=== PATIENT | female | born 1975 | race African-American/Black ===

== ENCOUNTER 2017-07-08 00:43 | Emergency (ER) | payer OTHER ==
[~2017-07-08] VITALS: Ht 165.1 cm; Wt 50.8 kg
[~2017-07-08 00:43] MED LIST: ERYT1OIN6 EACHEYE; FERR325T58 PO; NAPR375T3 PO
[2017-07-08 00:50] VITALS: BP 144/97
--- NOTE | 2017-07-08 02:06 | PHYS DOC ---
Past Medical History Past Medical History: No Pertinent History Past Surgical History: , Other Additional Past Surgical Histo: PARTIAL HYSTERECTOMY Alcohol Use: Occasionally Additional Information: pt states she drank "1 big ole beer" [place] at 7 pm Drug Use: Marijuana Adult General Chief Complaint Chief Complaint: NEURO SYMPTOMS/DEFICITS [facility] Patient is a 42 year old [f__sex] who presents with [] Review of Systems Review of Systems Constitutional: Denies fever or chills [] Eyes: Denies change in visual acuity, redness, or eye pain [] HENT: Denies nasal congestion or sore throat [] Respiratory: Denies cough or shortness of breath [] Cardiovascular: No additional information not addressed in HPI [] GI: Denies abdominal pain, nausea, vomiting, bloody stools or diarrhea [] : Denies dysuria or hematuria [] Musculoskeletal: Denies back pain or joint pain [] Integument: Denies rash or skin lesions [] Neurologic: Denies headache, focal weakness or sensory changes [] Endocrine: Denies polyuria or polydipsia [] Allergies Allergies Allergies Coded Allergies Type Severity Reaction Last Updated Verified No Known Drug Allergies 06/02/15 No Physical Exam Physical Exam Constitutional: Well developed, well nourished, no acute distress, non-toxic appearance. [] HENT: Normocephalic, atraumatic, bilateral external ears normal, oropharynx moist, no oral exudates, nose normal. [] Eyes: PERRLA, EOMI, conjunctiva normal, no discharge. [] Neck: Normal range of motion, no tenderness, supple, no stridor. [] Cardiovascular:Heart rate regular rhythm, no murmur [] Lungs & Thorax: Bilateral breath sounds clear to auscultation [] Abdomen: Bowel sounds normal, soft, no tenderness, no masses, no pulsatile masses. [] Skin: Warm, dry, no erythema, no rash. [] Back: No tenderness, no CVA tenderness. [] Extremities: No tenderness, no cyanosis, no clubbing, ROM intact, no edema. [] Neurologic: Alert and oriented X 3, normal motor function, normal sensory function, no focal deficits noted. [] Psychologic: Affect normal, judgement normal, mood normal. [] Current Patient Data Vital Signs Vital Signs Date Time Temp Pulse Resp B/P (MAP) Pulse Ox O2 Delivery O2 Flow Rate FiO2 8/11/17 00:50 98.0 89 20 144/97 (113) 99 Room Air 98.0 Lab Values Laboratory Tests Test 07/07/17 23:59 POC Urine HCG, Qualitative Hcg negative (Negative) EKG EKG [] Radiology/Procedures Radiology/Procedures [] Course & Med Decision Making Course & Med Decision Making Pertinent Labs and Imaging studies reviewed. (See chart for details) [] Dragon Disclaimer Dragon Disclaimer This electronic medical record was generated, in whole or in part, using a voice recognition dictation system. Departure Departure Impression: Primary Impression: Tuesday night nerve palsy Additional Impression: Radial nerve palsy Disposition: HOME, SELF-CARE Condition: GUARDED Referrals: NO PCP (PCP) Patient Instructions: Radial Nerve Palsy, Wrist Splint Problem Qualifiers SHALONDA VELEZ MD Jul 08, 2017 02:06
== END 2017-07-08 02:25 | disposition home or self-care (01) ==
LOC: ER 00:43
DX: G56.31 Lesion of radial nerve, right upper limb (principal); F12.10 Cannabis abuse, uncomplicated; Z90.711 Acquired absence of uterus with remaining cervical stump
CPT/HCPCS: 29125; 81025; 99283-25

== ENCOUNTER 2018-02-20 09:46 | Emergency (ER) | payer OTHER ==
[2018-02-20 10:22] LABS: BILIRUBIN,URINE NEGATIVE (NEG); CLARITY,URINE CLEAR; COLOR,URINE YELLOW; GLUCOSE,URINE NEGATIVE (NEG); NITRITE,URINE NEGATIVE (NEG); PH,URINE 5.5; PROTEIN,URINE 100 mg/dL (NEG-TRACE); UROBILINOGEN,URINE 0.2 mg/dL (0.2 mg/dL)
[2018-02-20] MEDS: IV NORMAL SALINE 1000ML BAG 1,000 ML IV (10:24)
[2018-02-20] MEDS: ONDANSETRON PF 4 MG/2 ML VIAL. IV (10:24)
[2018-02-20 10:28] LABS: AMPHETAMINE/METHAMPHETAMINE NEG (NEG); BARBITURATES NEG (NEG); BENZODIAZEPINES NEG (NEG); CANNABINOIDS POS (NEG); COCAINE NEG (NEG); ETHANOL, URINE NEG (NEG); METHADONE NEG (NEG); OPIATES NEG (NEG); PHENCYCLIDINE NEG (NEG)
[2018-02-20 10:36] LABS: BACTERIA,URINE FEW /HPF (0-FEW); SQUAMOUS EPITHELIAL CELL,UR FEW /LPF; WBC,URINE 0 /HPF (0-4)
[2018-02-20 10:40] LABS: ANION GAP 20 (6-14); BASO % 0 % (0-3); BLOOD UREA NITROGEN 15 mg/dL (7-20); BUN/CREATININE RATIO 21 (6-20); CALCIUM 9.3 mg/dL (8.5-10.1); CARBON DIOXIDE 21 mmol/L (21-32); CHLORIDE 98 mmol/L (98-107); CREATININE 0.7 mg/dL (0.6-1.0); EOS % 0 % (0-3); GLUCOSE 82 mg/dL (70-99); HEMATOCRIT 37.4 % (36.0-47.0); HEMOGLOBIN 12.6 g/dL (12.0-15.5); LYMPH # 0.5 x10^3/uL (1.0-4.8); LYMPH % 6 % (24-48); MEAN CORPUSCULAR HEMOGLOBIN 35 pg (25-35); MEAN CORPUSCULAR HGB CONC 34 g/dL (31-37); MEAN CORPUSCULAR VOLUME 102 fL (79-100); MONO # 0.2 x10^3/uL (0.0-1.1); MONO % 2 % (0-9); NEUT # 8.7 x10^3uL (1.8-7.7); NEUT % 92 % (31-73); PLATELET COUNT 247 x10^3/uL (140-400); POTASSIUM 3.5 mmol/L (3.5-5.1); RED BLOOD COUNT 3.66 x10^6/uL (3.50-5.40); RED CELL DISTRIBUTION WIDTH 13.2 % (11.5-14.5); SODIUM 139 mmol/L (136-145); WHITE BLOOD COUNT 9.4 x10^3/uL (4.0-11.0)
[2018-02-20 10:42] LABS: ETHANOL < 10 mg/dL (0-10)
[2018-02-20 10:45] LABS: ADD MAN DIFF? YES
[2018-02-20 10:46] LABS: ALK PHOS 80 U/L (46-116); ALT (SGPT) 139 U/L (14-59); AST (SGOT) 261 U/L (15-37); LIPASE 55 U/L (73-393); MAGNESIUM 1.3 mg/dL (1.8-2.4); TOTAL BILIRUBIN 0.6 mg/dL (0.2-1.0)
[2018-02-20 10:50] LABS: TROPONINI < 0.017 ng/mL (0.000-0.055)
[2018-02-20 10:53] LABS: CKMB MASS < 0.5 ng/mL (0.0-3.6); CREATINE KINASE 131 U/L (26-192)
[2018-02-20 10:53] LABS: NT-PRO BNP 54 pg/mL (0-124)
[2018-02-20 11:07] LABS: MYOGLOBIN 26 ng/mL (9-82); PROTHROMBIN TIME PATIENT 12.4 SEC (11.7-14.0)
[2018-02-20 11:25] LABS: % BANDS 4 % (0-9); % LYMPHS 3 % (24-48); % MONOS 1 % (0-10); % SEGS 92 % (35-66); PLT ESTIMATE ADEQUATE (ADEQUATE)
== END 2018-02-20 12:18 | disposition left against medical advice (07) ==
LOC: ER 09:46
DX: R25.2 Cramp and spasm (principal); R74.8 Abnormal levels of other serum enzymes; F12.10 Cannabis abuse, uncomplicated; Z90.711 Acquired absence of uterus with remaining cervical stump
CPT/HCPCS: 36415; 71045; 80053; 80307; 81001; 82553; 83690; 83735; 83874; 83880; 84443; 84484; 85007; 85025; 85610; 93005; 96361; 96374; 99285-25; G0480; J2405; J7030

== ENCOUNTER → 2019-11-01 | Outpatient (CLI) | payer OTHER ==
[2018-02-20 12:00] VITALS: BP 136/82
[~2019-11-01] MED LIST changes: +NAPR-695 PO; -NAPR375T3 PO
--- NOTE | 2019-11-01 13:52 | KCIC ---
MRI of the cervical spine without contrast 11/01/2019 CLINICAL HISTORY: Neck pain which radiates down the right arm. TECHNIQUE: Unenhanced T1-weighted and T2-weighted sagittal and axial and inversion recovery sagittal images of the lumbar spine were obtained. FINDINGS: Minimal lateral curvature of the cervical spine is seen convex to the right. There is slight reversal of the normal cervical lordosis. Degenerative signal changes are seen involving all of the disks of the cervical spine. Degenerative signal changes are seen within the marrow surrounding these discs. No area of abnormal signal intensity is seen involving the cervical spinal cord. On the axial images throughout the cervical disc spaces, degenerative changes are seen consisting of minimal to mild generalized disc bulges and degenerative changes involving the uncovertebral and facet joints. These findings do not result in definite areas of significant central spinal canal or neural foraminal stenosis. IMPRESSION: Degenerative changes are seen throughout the cervical spine as discussed above. These findings do not result in significant central spinal canal or neural foraminal stenosis. Electronically signed by: Nghia Reilly MD (11/01/2019 1:49 PM) [facility]-[id number]
== END | disposition home or self-care (01) ==
LOC: KCIC MRI 10:05
PROVIDERS: ATTEND Physical Medicine & Rehabilitation
DX: M47.22 Other spondylosis with radiculopathy, cervical region (principal); Z90.710 Acquired absence of both cervix and uterus
CPT/HCPCS: 72141

== ENCOUNTER 2021-03-02 08:50 | Emergency (ER) | payer OTHER ==
[~2021-03-02] VITALS: Ht 160 cm; Wt 52.2 kg
[2021-03-02] MEDS ORDERED: ONDANSETRON PF 4 MG/2 ML VIAL. IVP ONE (09:00)
[2021-03-02] MEDS ORDERED: IV NORMAL SALINE 1000ML BAG 1,000 ML IV ONE (09:00)
--- NOTE | 2021-03-02 09:10 | PHYS DOC ---
Past Medical History Past Medical History: No Pertinent History Past Surgical History: , Other Additional Past Surgical Histo: PARTIAL HYSTERECTOMY Smoking Status: Never Smoker Alcohol Use: Occasionally Drug Use: None General Adult EDM: Chief Complaint: NAUSEA/VOMITING/DIARRHEA HPI: HPI: Patient is a 46 year old female who presented to ER due to nausea vomiting seen yesterday morning. Patient says she drank some alcohol on Tuesday night, then woke up yesterday morning with nausea vomiting and was not able to keep anything down since. Patient now complains of epigastric abdominal pain after vomiting episode of vomiting. Patient denies any fever, no cough, no chest pain. Review of Systems: Review of Systems: Constitutional: Denies fever or chills. [] Eyes: Denies change in visual acuity. [] HENT: Denies nasal congestion or sore throat. [] Respiratory: Denies cough or shortness of breath. [] Cardiovascular: Denies chest pain or edema. [] GI: Positive for abdominal pain, nausea vomiting, no diarrhea. : Denies dysuria. [] Musculoskeletal: Denies back pain or joint pain. [] Integument: Denies rash. [] Neurologic: Denies headache, focal weakness or sensory changes. [] Endocrine: Denies polyuria or polydipsia. [] Lymphatic: Denies swollen glands. [] Psychiatric: Denies depression or anxiety. [] Heart Score: C/O Chest Pain: N/A Risk Factors: Risk Factors: DM, Current or recent (<one month) smoker, HTN, HLP, family history of CAD, obesity. Risk Scores: Score 0 - 3: 2.5% MACE over next 6 weeks - Discharge Home Score 4 - 6: 20.3% MACE over next 6 weeks - Admit for Clinical Observation Score 7 - 10: 72.7% MACE over next 6 weeks - Early Invasive Strategies Current Medications: Current Medications Medications (Trade) Dose Ordered Sig/Yohannes Start Time Stop Time Status Last Admin Dose Admin Ondansetron HCl (Zofran) 4 mg 1X ONCE 03/02/21 09:00 03/02/21 09:01 UNV Sodium Chloride 1,000 ml @ 1,000 mls/hr 1X ONCE 03/02/21 09:00 03/02/21 09:59 UNV Allergies: Allergies: Allergies Coded Allergies Type Severity Reaction Last Updated Verified No Known Drug Allergies 06/02/15 No Physical Exam: PE: Constitutional: Well developed, well nourished, no acute distress, non-toxic appearance. [] HENT: Normocephalic, atraumatic, bilateral external ears normal, oropharynx moist, no oral exudates, nose normal. [] Eyes: PERRLA, EOMI, conjunctiva pale, no discharge. [] Neck: Normal range of motion, no tenderness, supple, no stridor. [] Cardiovascular:Heart rate regular rhythm, no murmur [] Lungs & Thorax: Bilateral breath sounds clear to auscultation [] Abdomen: Bowel sounds normal, soft, no tenderness, no masses, no pulsatile masses. [] Skin: Warm, dry, no erythema, no rash. [] Back: No tenderness, no CVA tenderness. [] Extremities: No tenderness, no cyanosis, no clubbing, ROM intact, no edema. [] Neurologic: Alert and oriented X 3, normal motor function, normal sensory function, no focal deficits noted. [] Psychologic: Affect normal, judgement normal, mood normal. [] Current Patient Data: Labs: Laboratory Tests Test 03/02/21 08:55 03/02/21 08:58 03/02/21 09:10 Urine Collection Type Void Urine Color Yellow Urine Clarity Clear Urine pH 6.0 Urine Specific [place] 1.025 Urine Protein >=300 mg/dL Urine Glucose (UA) Negative mg/dL Urine Ketones (Stick) >=80 mg/dL Urine Blood Large Urine Nitrite Negative Urine Bilirubin Negative Urine Urobilinogen Dipstick 0.2 mg/dL Urine Leukocyte Esterase Negative Urine RBC >40 /HPF Urine WBC 1-4 /HPF Urine Squamous Epithelial Cells Many /LPF Urine Bacteria Few /HPF Urine Mucus Marked /LPF Bedside Urine HCG, Qualitative Hcg negative White Blood Count 7.9 x10^3/uL Red Blood Count 3.61 x10^6/uL Hemoglobin 12.8 g/dL Hematocrit 36.4 % Mean Corpuscular Volume 101 fL Mean Corpuscular Hemoglobin 35 pg Mean Corpuscular Hemoglobin Concent 35 g/dL Red Cell Distribution Width 13.0 % Platelet Count 226 x10^3/uL Neutrophils (%) (Auto) 88 % Lymphocytes (%) (Auto) 5 % Monocytes (%) (Auto) 6 % Eosinophils (%) (Auto) 0 % Basophils (%) (Auto) 0 % Neutrophils # (Auto) 7.0 x10^3/uL Lymphocytes # (Auto) 0.4 x10^3/uL Monocytes # (Auto) 0.5 x10^3/uL Eosinophils # (Auto) 0.0 x10^3/uL Basophils # (Auto) 0.0 x10^3/uL Segmented Neutrophils % 81 % Band Neutrophils % 5 % Lymphocytes % 6 % Monocytes % 7 % Basophils % 1 % Platelet Estimate Adequate Macrocytosis Slight Sodium Level 133 mmol/L Potassium Level 3.3 mmol/L Chloride Level 91 mmol/L Carbon Dioxide Level 24 mmol/L Anion Gap 18 Blood Urea Nitrogen 14 mg/dL Creatinine 0.8 mg/dL Estimated GFR (Cockcroft-Gault) 93.0 BUN/Creatinine Ratio 18 Glucose Level 135 mg/dL Calcium Level 8.8 mg/dL Magnesium Level 1.2 mg/dL Total Bilirubin 0.8 mg/dL Aspartate Amino Transf (AST/SGOT) 55 U/L Alanine Aminotransferase (ALT/SGPT) 41 U/L Alkaline Phosphatase 66 U/L Total Protein 8.2 g/dL Albumin 4.0 g/dL Albumin/Globulin Ratio 1.0 Lipase 176 U/L Ethyl Alcohol Level < 10 mg/dL Current Medications Medications (Trade) Dose Ordered Sig/Yohannes Route PRN Reason Start Time Stop Time Status Last Admin Dose Admin Sodium Chloride 1,000 ml @ 1,000 mls/hr 1X ONCE IV 03/02/21 09:00 03/02/21 09:59 DC 03/02/21 09:18 Ondansetron HCl (Zofran) 4 mg 1X ONCE IVP 03/02/21 09:00 03/02/21 09:07 DC 03/02/21 09:20 Magnesium Sulfate 50 ml @ 25 mls/hr 1X ONCE IV 03/02/21 10:00 03/02/21 11:59 DC 03/02/21 11:04 Potassium Chloride (Klor-Con) 30 meq 1X ONCE PO 03/02/21 10:00 03/02/21 10:08 DC 03/02/21 11:05 Iohexol (Omnipaque 300 Mg/ml) 75 ml 1X ONCE IV 03/02/21 11:15 03/02/21 11:16 DC 03/02/21 11:21 Info (CONTRAST GIVEN -- Rx MONITORING) 1 each PRN DAILY PRN MC SEE COMMENTS 03/02/21 11:15 03/02/21 14:08 DC Laboratory Tests Test 03/02/21 08:58 POC Urine HCG, Qualitative Hcg negative (Negative) EKG: EKG: [] Radiology/Procedures: Radiology/Procedures: [][facility] [address] [place] [address] IMAGING REPORT Signed PATIENT: PARAG TALBERT ACCOUNT: [id number] : 1975 LOCATION: ER AGE: 46 SEX: F EXAM STATUS: REG ER ORD. PHYSICIAN: RENATO RIZO DO REASON: ABDOMINAL PAIN, NAUSEA, VOMITING PROCEDURE: CT ABD PELV W/ IV CONTRST ONLY CT ABDOMEN+PELVIS W History: Reason: ABDOMINAL PAIN, NAUSEA, VOMITING Comparison: None. Technique: After administration of intravenous contrast, helical CT of the abdomen and pelvis was performed from the lung bases through the ischial tuberosities. Coronal and sagittal reconstructions were obtained. 75 mL of Omnipaque 300 were used. One or more of the following dose reduction techniques were utilized: Automated exposure control (AEC), Adjustment of mA and/or kV according to patient size, Use of iterative reconstruction technique such as ASiR, CT scan done according to ALARA and image gently/image wisely Abdomen Findings: The visualized lung bases are clear. Liver measures 19.8 cm craniocaudad. Focal fatty infiltration along the falciform ligament. Gallbladder, pancreas, and spleen are normal. Indeterminate left adrenal 1 cm nodule. Symmetric renal enhancement. No opaque urinary calculi. There is no hydronephrosis. The visualized loops of small bowel are normal. The visualized loops of large bowel are normal. There is no evidence of bowel obstruction. Appendix is normal. There is no free fluid. There is no mesenteric or retroperitoneal adenopathy. The abdominal aorta is normal in caliber. Pelvis Findings: Urinary bladder is decompressed. Hysterectomy. No pelvic free fluid. There is no pelvic or inguinal adenopathy. There is no acute bony abnormality. IMPRESSION: 1. No acute findings. 2. Indeterminate left adrenal 1 cm nodule could be further characterized with adrenal protocol CT. 3. Hepatomegaly. Electronically signed by: Amarilis Smith MD (03/02/2021 11:53 AM) [id number] DICTATED and SIGNED BY: AMARILIS SMITH MD DATE: 03/02/21 [id number] 0 Course & Med Decision Making: Course & Med Decision Making Pertinent Labs and Imaging studies reviewed. (See chart for details) Patient is a 46-year-old female who presented to ER due to nausea vomiting and abdominal pain after drinking alcohol. Patient was found to be dehydrated, her magnesium level was low, patient was given IV fluid and IV magnesium in the ED, patient feel much better, CT scan abdomen pelvic did not show any acute problem, she had 1 cm MASS IN HER LEFT ADRENAL GLAND. Patient was given the copy of the CT scan report so she can go and see her family doctor for further evaluation and treatment. Patient was discharged home with a prescription for nausea medication. Patient is amenable to plan of care. Dragon Disclaimer: Dragon Disclaimer: This electronic medical record was generated, in whole or in part, using a voice recognition dictation system. Departure Departure Impression: Primary Impression: Nausea and vomiting Additional Impression: Hypomagnesemia Disposition: 01 DC HOME SELF CARE/HOMELESS Condition: IMPROVED Referrals: NO PCP (PCP) Please follow up with [facility] this week. [address], [address] [place] [address] Phone number: [phone] Patient Instructions: Hypomagnesemia, Nausea and Vomiting Additional Instructions: Thank you for visiting our Emergency Department. We appreciate you trusting us with your care. If any additional problems come up don't hesitate to return to visit us. Please follow up with your primary care provider so they can plan additional care if needed and know about the problem that you had. If symptoms worsen come back to the Emergency Department. Any concerning symptoms that start such as chest pain, shortness of air, weakness or numbness on one side of the body, running high fevers or any other concerning symptoms return to the ER. Scripts Ondansetron Hcl (ZOFRAN) 4 Mg Tablet 1 TAB PO Q6HRS PRN for NAUSEA, #20 TAB Prov: RENATO RIZO DO 03/02/21 RENATO RIZO DO Mar 02, 2021 09:10
[2021-03-02 09:11] LABS: BILIRUBIN,URINE NEGATIVE (NEG); CLARITY,URINE CLEAR; COLOR,URINE YELLOW; NITRITE,URINE NEGATIVE (NEG); PROTEIN,URINE >=300 mg/dL (NEG-TRACE); UROBILINOGEN,URINE 0.2 mg/dL (0.2 mg/dL)
[2021-03-02 09:21] LABS: RBC,URINE >40 /HPF (0-2)
[2021-03-02 09:22] LABS: BACTERIA,URINE FEW /HPF (0-FEW)
[2021-03-02 09:26] LABS: BASO % 0 % (0-3); EOS % 0 % (0-3); HEMATOCRIT 36.4 % (36.0-47.0); HEMOGLOBIN 12.8 g/dL (12.0-15.5); LYMPH # 0.4 x10^3/uL (1.0-4.8); LYMPH % 5 % (24-48); MEAN CORPUSCULAR HEMOGLOBIN 35 pg (25-35); MEAN CORPUSCULAR HGB CONC 35 g/dL (31-37); MEAN CORPUSCULAR VOLUME 101 fL (79-100); MONO # 0.5 x10^3/uL (0.0-1.1); MONO % 6 % (0-9); NEUT % 88 % (31-73); PLATELET COUNT 226 x10^3/uL (140-400); RED BLOOD COUNT 3.61 x10^6/uL (3.50-5.40); WHITE BLOOD COUNT 7.9 x10^3/uL (4.0-11.0)
[2021-03-02 09:33] LABS: CALCIUM 8.8 mg/dL (8.5-10.1); CREATININE 0.8 mg/dL (0.6-1.0); POTASSIUM 3.3 mmol/L (3.5-5.1)
[2021-03-02 09:39] LABS: MAGNESIUM 1.2 mg/dL (1.8-2.4); TOTAL BILIRUBIN 0.8 mg/dL (0.2-1.0); TOTAL PROTEIN 8.2 g/dL (6.4-8.2)
[2021-03-02 09:53] LABS: % BANDS 5 % (0-9); % BASOS 1 % (0-3); % LYMPHS 6 % (24-48); % MONOS 7 % (0-10); % SEGS 81 % (35-66); PLT ESTIMATE ADEQUATE (ADEQUATE)
[2021-03-02] MEDS ORDERED: MAGNESIUM SULFATE 2GM 50 ML IV ONE (10:00)
[2021-03-02] MEDS ORDERED: POTASSIUM CHLORIDE 10 MEQ TABLET.ER. PO ONE (10:00)
--- NOTE | 2021-03-02 10:54 | RAD ---
ACUTE ABDOMEN SERIES History: Nausea and vomiting, abdominal pain. Comparison: None. Findings: Frontal chest and supine and upright views of the abdomen. Cardiomediastinal silhouette is normal. There is no pleural effusion or pneumothorax. The lungs are clear. Old left posterior ninth rib fracture. No pneumoperitoneum is identified. No dilated air-filled loops of bowel are seen. Bowel gas pattern i s nonobstructive. There is nonspecific air in the left abdomen on the supine view. There are phleboli ths in the pelvis. Bones unremarkable. IMPRESSION: 1. No acute cardiopulmonary process. 2. Nonobstructive bowel gas pattern. Consider further evaluation with CT. Electronically signed by: Mo Max MD (03/02/2021 10:52 AM) [id number]
[2021-03-02] MEDS ORDERED: IOHEXOL 300 MG/ML 100ML VIAL. IV ONE (11:15)
[2021-03-02] MEDS ORDERED: CONTRAST GIVEN. MC PRN (11:15)
--- NOTE | 2021-03-02 11:55 | RAD ---
CT ABDOMEN+PELVIS W History: Reason: ABDOMINAL PAIN, NAUSEA, VOMITING Comparison: None. Technique: After administration of intravenous contrast, helical CT of the abdomen and pelvis was per formed from the lung bases through the ischial tuberosities. Coronal and sagittal reconstructions wer e obtained. 75 mL of Omnipaque 300 were used. One or more of the following dose reduction techniques were utilized: Automated exposure control (AEC), Adjustment of mA and/or kV according to patient size , Use of iterative reconstruction technique such as ASiR, CT scan done according to ALARA and image g ently/image wisely Abdomen Findings: The visualized lung bases are clear. Liver measures 19.8 cm craniocaudad. Focal fatty infiltration along the falciform ligament. Gallbladd er, pancreas, and spleen are normal. Indeterminate left adrenal 1 cm nodule. Symmetric renal enhancement. No opaque urinary calculi. There is no hydronephrosis. The visualized loops of small bowel are normal. The visualized loops of large bowel are normal. There is no evidence of bowel obstruction. Appendix is normal. There is no free fluid. There is no mesenteric or retroperitoneal adenopathy. The abdominal aorta is normal in caliber. Pelvis Findings: Urinary bladder is decompressed. Hysterectomy. No pelvic free fluid. There is no pelvic or inguinal a denopathy. There is no acute bony abnormality. IMPRESSION: 1. No acute findings. 2. Indeterminate left adrenal 1 cm nodule could be further characterized with adrenal protocol CT. 3. Hepatomegaly. Electronically signed by: Cecilio Hoang MD (03/02/2021 11:53 AM) [id number]
[2021-03-02 13:50] VITALS: BP 164/85
[2021-03-02] MEDS ORDERED: ONDA4TAB7 PO (13:55)
== END 2021-03-02 14:01 | disposition home or self-care (01) ==
LOC: ER 08:50
DX: R11.2 Nausea with vomiting, unspecified (principal); R10.13 Epigastric pain; E83.42 Hypomagnesemia; Z98.890 Other specified postprocedural states; Z90.710 Acquired absence of both cervix and uterus
CPT/HCPCS: 36415; 74022; 74177; 80053; 81001; 81025; 83690; 83735; 85007; 85025; 96361; 96365; 96375; 99285; G0480; J2405; J3475; J7030; Q9967

== ENCOUNTER 2021-05-21 11:16 | Emergency (ER) | payer OTHER ==
[~2021-05-21] VITALS: Ht 165.1 cm; Wt 50.0 kg
[~2021-05-21 11:16] MED LIST changes: +ONDA4TAB7 PO
[2021-05-21] MEDS ORDERED: IV NORMAL SALINE 1000ML BAG 1,000 ML IV ONE (11:45)
[2021-05-21] MEDS ORDERED: METOCLOPRAMIDE HCL 10 MG/2 ML VIAL. IVP ONE (11:45)
[2021-05-21] MEDS ORDERED: KETOROLAC 15 MG/ML VIAL. IVP ONE (11:45)
[2021-05-21 11:58] LABS: BILIRUBIN,URINE SMALL (NEG); CLARITY,URINE CLEAR; COLOR,URINE AMBER; NITRITE,URINE NEGATIVE (NEG); PH,URINE 5.5 (<5.0-8.0); PROTEIN,URINE 100 mg/dL (NEG-TRACE); UROBILINOGEN,URINE 0.2 mg/dL (0.2 mg/dL)
[2021-05-21 12:13] LABS: BACTERIA,URINE FEW /HPF (0-FEW); RBC,URINE OCC /HPF (0-2); WBC,URINE OCC /HPF (0-4)
--- NOTE | 2021-05-21 12:14 | RAD ---
Exam: CT abdomen/pelvis without intravenous contrast Indication: Left lower quadrant pain, evaluate kidney stone Comparison: CT abdomen pelvis 03/02/2021 Technique: Helical CT imaging performed of the abdomen and pelvis without the use of intravenous cont rast. Sagittal and coronal reformats were obtained. One or more of the following individualized dose reduction techniques were utilized for this examinat ion: 1. Automated exposure control 2. Adjustment of the mA and/or kV according to patient size 3. Use of iterative reconstruction technique. Findings: Inherently limited evaluation without intravenous contrast. Lower chest: Lung bases are clear. The heart is normal in size. Liver: Unremarkable noncontrast appearance the liver. Gallbladder/Biliary Tree: Normal. Pancreas: Normal. Spleen: Normal. Adrenal Glands: Normal. Kidneys/Ureters/Bladder: Kidneys are normal in size. No nephrolithiasis or hydronephrosis. Ureters an d bladder are normal. Reproductive Organs: Uterus is surgically absent. There is a new left adnexal mass measuring 4.0 x 3. 1 cm. This has a cystic component and a more attenuating nodular component measuring 2.2 cm that coul d be hemorrhage or soft tissue. A right cystic adnexal mass measuring 3.6 x 2.7 cm has increased in s ize and has a small hyperattenuating nodular component. Stomach, small bowel, and colon: The stomach, small bowel, colon, and appendix are normal. Vasculature: Abdominal aorta is normal in caliber. Lymph Nodes: No lymphadenopathy. Peritoneum and retroperitoneum: No free fluid or free air. Bones: No acute osseous abnormality. Impression: 1. Complex cystic adnexal masses measuring 4 cm on the left and 3.6 cm on the right, possibly hemorr hagic cysts. Pelvic ultrasound could be obtained to further evaluate. 2. No urolithiasis or hydronephrosis. Electronically signed by: Doreen Holman MD (05/21/2021 12:11 PM) [id number]
[2021-05-21 12:33] LABS: BASO % 1 % (0-3); EOS % 0 % (0-3); HEMATOCRIT 38.2 % (36.0-47.0); LYMPH # 1.1 x10^3/uL (1.0-4.8); LYMPH % 17 % (24-48); MEAN CORPUSCULAR HEMOGLOBIN 35 pg (25-35); MEAN CORPUSCULAR HGB CONC 34 g/dL (31-37); MEAN CORPUSCULAR VOLUME 103 fL (79-100); MONO # 0.4 x10^3/uL (0.0-1.1); MONO % 6 % (0-9); NEUT # 5.3 x10^3/uL (1.8-7.7); NEUT % 77 % (31-73); PLATELET COUNT 251 x10^3/uL (140-400); RED BLOOD COUNT 3.73 x10^6/uL (3.50-5.40); RED CELL DISTRIBUTION WIDTH 13.1 % (11.5-14.5); WHITE BLOOD COUNT 6.9 x10^3/uL (4.0-11.0)
[2021-05-21] MEDS ORDERED: fentaNYL PF VIAL 100 MCG/2 ML VIAL IV ONE (12:45)
[2021-05-21 12:49] LABS: CALCIUM 9.6 mg/dL (8.5-10.1); CREATININE 0.6 mg/dL (0.6-1.0); GFR 129.7; POTASSIUM 4.2 mmol/L (3.5-5.1)
[2021-05-21 12:50] LABS: ALBUMIN 4.6 g/dL (3.4-5.0); ALBUMIN/GLOBULIN RATIO 1.4 (1.0-1.7); MAGNESIUM 1.5 mg/dL (1.8-2.4); TOTAL BILIRUBIN 0.6 mg/dL (0.2-1.0); TOTAL PROTEIN 7.8 g/dL (6.4-8.2)
[2021-05-21 14:00] VITALS: BP 172/89
--- NOTE | 2021-05-21 14:06 | RAD ---
INDICATION: Reason: pelvic pain, ovarian cysts eval for torsion / Spl. Instructions: / History: COMPARISON: CT from same day TECHNIQUE: Grayscale and color ultrasound images uterus and adnexa. Transabdominal and transvaginal images obtained. Transvaginal images were needed to better visualize structures that were limited on transabdominal imaging. FINDINGS: Uterus: Removed. Right Ovary: 58 x 36 x 30 mm. Left Ovary: 38 x 38 x 26 mm. Vascular flow identified to bilateral ovaries. At the bilateral ovaries are multiple heterogenous complex lesions identified measuring up to 36 x 30 mm on the right and 32 x 26 mm on the left. IMPRESSION: * Multiple complex lesions are identified at the bilateral ovaries. Could be from causes such as he morrhagic cyst with other higher grade lesions not excluded as well as endometrioma. Continued follow -up will be needed to ensure no growth. * Vascular flow is seen to the bilateral ovaries. * Trace free fluid. Electronically signed by: Sadiq Delgado MD (05/21/2021 2:03 PM) [id number]
[2021-05-21] MEDS ORDERED: MAGNESIUM CHLORIDE ER 64 MG TABLET.ER PO ONE (14:45)
[2021-05-21] MEDS ORDERED: HYDR-2761 PO (14:49)
--- NOTE | 2021-05-21 14:49 | PHYS DOC ---
Past Medical History Past Medical History: No Pertinent History Past Surgical History: , Hysterectomy Additional Past Surgical Histo: PARTIAL HYSTERECTOMY, HERNIA REPAIR Smoking Status: Never Smoker Alcohol Use: Occasionally Drug Use: None General Adult EDM: Chief Complaint: ABDOMINAL PAIN HPI: HPI: Patient is a 46 year old [f__sex] who presents with [] Review of Systems: Review of Systems: Constitutional: Denies fever or chills Eyes: Denies redness or eye pain HENT: Denies nasal congestion or sore throat Respiratory: Denies cough or shortness of breath Cardiovascular: Denies chest pain or palpitations GI: Denies abdominal pain, nausea, or vomiting : Denies dysuria or hematuria Musculoskeletal: Denies back pain or joint pain Integument: Denies rash or skin lesions Neurologic: Denies headache, focal weakness or sensory changes Complete systems were reviewed and found to be within normal limits, except as documented in this note. Heart Score: C/O Chest Pain: N/A Risk Factors: Risk Factors: DM, Current or recent (<one month) smoker, HTN, HLP, family hist ory of CAD, obesity. Risk Scores: Score 0 - 3: 2.5% MACE over next 6 weeks - Discharge Home Score 4 - 6: 20.3% MACE over next 6 weeks - Admit for Clinical Observation Score 7 - 10: 72.7% MACE over next 6 weeks - Early Invasive Strategies Current Medications: Current Medications Medications (Trade) Dose Ordered Sig/Yohannes Start Time Stop Time Status Last Admin Dose Admin Fentanyl Citrate (Fentanyl 2ml Vial) 50 mcg 1X ONCE 05/21/21 12:45 05/21/21 12:47 DC 05/21/21 13:08 50 MCG Ketorolac Tromethamine (Toradol 15mg Vial) 15 mg 1X ONCE 05/21/21 11:45 05/21/21 11:46 DC 05/21/21 12:30 15 MG Magnesium Chloride (Mag Delay) 64 mg 1X ONCE 05/21/21 14:45 05/21/21 14:46 Metoclopramide HCl (Reglan Vial) 10 mg 1X ONCE 05/21/21 11:45 05/21/21 11:46 DC 05/21/21 12:31 10 MG Sodium Chloride 1,000 ml @ 1,000 mls/hr 1X ONCE 05/21/21 11:45 05/21/21 12:44 DC 05/21/21 12:30 1,000 MLS/HR Allergies: Allergies: Allergies Coded Allergies Type Severity Reaction Last Updated Verified No Known Drug Allergies 06/02/15 No Physical Exam: PE: Constitutional: Well developed, well nourished, no acute distress, non-toxic appearance HENT: Normocephalic, atraumatic Eyes: PERRL, EOMI, conjunctiva normal, no discharge Neck: Normal range of motion, no tenderness, supple Lungs & Thorax: No respiratory distress, equal chest rise and fall Abdomen: Soft, no tenderness Skin: Warm, dry, no erythema, no rash Back: No tenderness, no CVA tenderness Extremities: No tenderness, ROM intact, no edema Neurologic: Alert and oriented X 3, normal motor function, normal sensory function, no focal deficits noted Psychologic: Affect normal, judgment normal Current Patient Data: Labs: Laboratory Tests Test 05/21/21 11:19 05/21/21 11:36 05/21/21 12:22 Urine Collection Type Unknown Urine Color Katarzyna Urine Clarity Clear Urine pH 5.5 (<5.0-8.0) Urine Specific [place] 1.020 (1.000-1.030) Urine Protein 100 mg/dL (NEG-TRACE) Urine Glucose (UA) Negative mg/dL (NEG) Urine Ketones (Stick) Trace mg/dL (NEG) Urine Blood Large (NEG) Urine Nitrite Negative (NEG) Urine Bilirubin Small (NEG) Urine Urobilinogen Dipstick 0.2 mg/dL (0.2 mg/dL) Urine Leukocyte Esterase Small (NEG) Urine RBC Occ /HPF (0-2) Urine WBC Occ /HPF (0-4) Urine Squamous Epithelial Cells Few /LPF Urine Bacteria Few /HPF (0-FEW) Urine Mucus Mod /LPF POC Urine HCG, Qualitative Hcg negative (Negative) White Blood Count 6.9 x10^3/uL (4.0-11.0) Red Blood Count 3.73 x10^6/uL (3.50-5.40) Hemoglobin 13.0 g/dL (12.0-15.5) Hematocrit 38.2 % (36.0-47.0) Mean Corpuscular Volume 103 fL (79-100) H Mean Corpuscular Hemoglobin 35 pg (25-35) Mean Corpuscular Hemoglobin Concent 34 g/dL (31-37) Red Cell Distribution Width 13.1 % (11.5-14.5) Platelet Count 251 x10^3/uL (140-400) Neutrophils (%) (Auto) 77 % (31-73) H Lymphocytes (%) (Auto) 17 % (24-48) L Monocytes (%) (Auto) 6 % (0-9) Eosinophils (%) (Auto) 0 % (0-3) Basophils (%) (Auto) 1 % (0-3) Neutrophils # (Auto) 5.3 x10^3/uL (1.8-7.7) Lymphocytes # (Auto) 1.1 x10^3/uL (1.0-4.8) Monocytes # (Auto) 0.4 x10^3/uL (0.0-1.1) Eosinophils # (Auto) 0.0 x10^3/uL (0.0-0.7) Basophils # (Auto) 0.0 x10^3/uL (0.0-0.2) Sodium Level 140 mmol/L (136-145) Potassium Level 4.2 mmol/L (3.5-5.1) Chloride Level 100 mmol/L (98-107) Carbon Dioxide Level 25 mmol/L (21-32) Anion Gap 15 (6-14) H Blood Urea Nitrogen 15 mg/dL (7-20) Creatinine 0.6 mg/dL (0.6-1.0) Estimated GFR (Cockcroft-Gault) 129.7 BUN/Creatinine Ratio 25 (6-20) H Glucose Level 86 mg/dL (70-99) Calcium Level 9.6 mg/dL (8.5-10.1) Magnesium Level 1.5 mg/dL (1.8-2.4) L Total Bilirubin 0.6 mg/dL (0.2-1.0) Aspartate Amino Transferase (AST) 130 U/L (15-37) H Alanine Aminotransferase (ALT) 73 U/L (14-59) H Alkaline Phosphatase 80 U/L (46-116) Total Protein 7.8 g/dL (6.4-8.2) Albumin 4.6 g/dL (3.4-5.0) Albumin/Globulin Ratio 1.4 (1.0-1.7) Lipase 46 U/L (73-393) L Laboratory Tests 05/21/21 12:22 Laboratory Tests 05/21/21 12:22 Vital Signs: Vital Signs Date Time Temp Pulse Resp B/P (MAP) Pulse Ox O2 Delivery O2 Flow Rate FiO2 05/21/21 13:08 16 100 Room Air 05/21/21 11:35 98.1 99 170/75 (106) 98.1 EKG: EKG: [] Radiology/Procedures: Radiology/Procedures: PROCEDURE: CT ABDOMEN PELVIS WO CONTRAST Exam: CT abdomen/pelvis without intravenous contrast Indication: Left lower quadrant pain, evaluate kidney stone Comparison: CT abdomen pelvis 03/02/2021 Technique: Helical CT imaging performed of the abdomen and pelvis without the use of intravenous contrast. Sagittal and coronal reformats were obtained. One or more of the following individualized dose reduction techniques were utilized for this examination: 1. Automated exposure control 2. Adjustment of the mA and/or kV according to patient size 3. Use of iterative reconstruction technique. Findings: Inherently limited evaluation without intravenous contrast. Lower chest: Lung bases are clear. The heart is normal in size. Liver: Unremarkable noncontrast appearance the liver. Gallbladder/Biliary Tree: Normal. Pancreas: Normal. Spleen: Normal. Adrenal Glands: Normal. Kidneys/Ureters/Bladder: Kidneys are normal in size. No nephrolithiasis or hydronephrosis. Ureters and bladder are normal. Reproductive Organs: Uterus is surgically absent. There is a new left adnexal mass measuring 4.0 x 3.1 cm. This has a cystic component and a more attenuating nodular component measuring 2.2 cm that could be hemorrhage or soft tissue. A right cystic adnexal mass measuring 3.6 x 2.7 cm has increased in size and has a small hyperattenuating nodular component. Stomach, small bowel, and colon: The stomach, small bowel, colon, and appendix are normal. Vasculature: Abdominal aorta is normal in caliber. Lymph Nodes: No lymphadenopathy. Peritoneum and retroperitoneum: No free fluid or free air. Bones: No acute osseous abnormality. Impression: 1. Complex cystic adnexal masses measuring 4 cm on the left and 3.6 cm on the right, possibly hemorrhagic cysts. Pelvic ultrasound could be obtained to further evaluate. 2. No urolithiasis or hydronephrosis. Electronically signed by: Doreen Holman MD (05/21/2021 12:11 PM) [id number] PROCEDURE: PELVIS ULTRASOUND INDICATION: Reason: pelvic pain, ovarian cysts eval for torsion / Spl. Instructions: / History: COMPARISON: CT from same day TECHNIQUE: Grayscale and color ultrasound images uterus and adnexa. Transabdominal and transvaginal images obtained. Transvaginal images were needed to better visualize structures that were limited on transabdominal imaging. FINDINGS: Uterus: Removed. Right Ovary: 58 x 36 x 30 mm. Left Ovary: 38 x 38 x 26 mm. Vascular flow identified to bilateral ovaries. At the bilateral ovaries are multiple heterogenous complex lesions identified measuring up to 36 x 30 mm on the right and 32 x 26 mm on the left. IMPRESSION: * Multiple complex lesions are identified at the bilateral ovaries. Could be from causes such as hemorrhagic cyst with other higher grade lesions not excluded as well as endometrioma. Continued follow-up will be needed to ensure no growth. * Vascular flow is seen to the bilateral ovaries. * Trace free fluid. Electronically signed by: Sadiq Delgado MD (05/21/2021 2:03 PM) [id number] Course & Med Decision Making: Course & Med Decision Making Pertinent Labs and Imaging studies reviewed. (See chart for details) Patient stable for discharge with outpatient follow-up with PCP/C.O.D. AUDIT CLERK. Discussed findings and plan with patient and family, who acknowledge understanding and agreement. Zachary Disclaimer: Zachary Disclaimer: This electronic medical record was generated, in whole or in part, using a voice recognition dictation system. Departure Departure Impression: Primary Impression: Ovarian cyst Qualified Codes: N83.201 - Unspecified ovarian cyst, right side; N83.202 - Unspecified ovarian cyst, left side Additional Impression: Hypomagnesemia Disposition: 01 HOME / SELF CARE / HOMELESS Condition: STABLE Referrals: UNKNOWN PCP NAME (PCP) Patient Instructions: Endometriosis, Hypomagnesemia, Ovarian Cyst, [id number] Additional Instructions: Please follow closely with your C.O.D. AUDIT CLERK regarding your complex ovarian cysts with concern for endometrioma. May use [id number] ibuprofen or Aleve for pain in addition to prescribed medication. Scripts Hydrocodone Bit/Acetaminophen (HYDROCODONE-APAP 5-325 ) 1 Tab Tablet 0.5-1 TAB PO PRN Q6HRS PRN for PAIN, #10 TAB 0 Refills Prov: ALDO MOODY DO 05/21/21 ALDO MOOYD DO May 21, 2021 14:49
== END 2021-05-21 15:03 | disposition home or self-care (01) ==
LOC: ER 11:16
DX: N83.201 Unspecified ovarian cyst, right side (principal); N83.202 Unspecified ovarian cyst, left side; E83.42 Hypomagnesemia; Z98.890 Other specified postprocedural states; Z90.710 Acquired absence of both cervix and uterus
CPT/HCPCS: 36415; 74176; 76856; 80053; 81001; 81025; 83690; 83735; 85025; 87086; 96361; 96374; 96375; 99285; J1885; J2765; J3010; J7030